=== PATIENT | female | born 1970 | race Caucasian/White ===

== ENCOUNTER → 2017-02-19 | Outpatient (CLI) | payer OTHER ==
[~2017-02-19] MED LIST: CALC-183 PO; CHOL200040 PO; CYCL-259 PO; ESCI10TA PO; ESCI10TA10 PO; ESTR1PAT65 TD; FERR325T20 PO; OXYC-302 PO; TRAZ50TA18 PO; XANAX PO
== END | disposition home or self-care (01) ==
LOC: CFH 09:47
PROVIDERS: ATTEND Obstetrics & Gynecology
DX: Z12.31 Encounter for screening mammogram for malignant neoplasm of breast (principal)
CPT/HCPCS: G0202

== ENCOUNTER 2017-06-26 17:08 | Emergency (ER) | payer OTHER ==
[~2017-06-26] VITALS: Ht 170.2 cm; Wt 111.1 kg
[2017-06-26 17:12] VITALS: BP 190/84
[2017-06-26] MEDS ORDERED: SODIUM CHLORIDE FLUSH 10ML SYR IVF ONE (17:30)
[2017-06-26] MEDS ORDERED: SODIUM CHLORIDE 0.9% 1,000ML IV ONE (17:30)
[2017-06-26] MEDS ORDERED: ONDANSETRON 2MG/ML, 2ML IVPush ONE (17:30)
[2017-06-26] MEDS ORDERED: HYDROmorphone 1 MG/ML, 1ML IVPush PRN (17:30)
[2017-06-26] MEDS ORDERED: ONDANSETRON 2MG/ML, 2ML ONE (17:54)
[2017-06-26] MEDS ORDERED: HYDROmorphone 1 MG/ML, 1ML ONE (17:54)
[2017-06-26 18:03] LABS: HEMATOCRIT 40.3 % (34.6-47.8); HEMOGLOBIN 13.3 g/dL (11.7-16.4); WHITE BLOOD COUNT 7.5 x10^3/uL (3.4-10)
[2017-06-26 18:15] LABS: BLOOD UREA NITROGEN 12 mg/dL (7-18)
[2017-06-26] MEDS ORDERED: KETOROLAC 30 MG/1 ML ONE (18:34)
[2017-06-26] MEDS ORDERED: ONDANSETRON ODT 4 MG ONE (18:34)
[2017-06-26] MEDS ORDERED: KETOROLAC 30 MG/1 ML IM ONE (19:00)
[2017-06-26] MEDS ORDERED: ONDANSETRON ODT 4 MG PO ONE (19:00)
== END 2017-06-26 20:22 | disposition home or self-care (01) ==
LOC: ED 19:45
DX: N20.2 Calculus of kidney with calculus of ureter (principal); Z90.49 Acquired absence of other specified parts of digestive tract; Z90.710 Acquired absence of both cervix and uterus; Z98.84 Bariatric surgery status
CPT/HCPCS: 36415; 74176; 80048; 81003; 82040; 84703; 85025; 96372; 99285; J1885; Q0162

== ENCOUNTER 2017-09-16 22:20 | Emergency (ER) | payer OTHER ==
[~2017-09-16] VITALS: Ht 170.2 cm; Wt 113.0 kg
[~2017-09-16 22:20] MED LIST changes: +FERR325T18 PO; -FERR325T20 PO
[2017-09-16] MEDS ORDERED: MORPHINE SULFATE 4 MG/ML, 1ML IVPush PRN (23:00)
[2017-09-16] MEDS ORDERED: ONDANSETRON 2MG/ML, 2ML IVPush ONE (23:00)
[2017-09-16] MEDS ORDERED: KETOROLAC 30 MG/1 ML IVPush ONE (23:00)
[2017-09-16] MEDS ORDERED: SODIUM CHLORIDE FLUSH 10ML SYR IVF ONE (23:00)
[2017-09-16] MEDS ORDERED: SODIUM CHLORIDE 0.9% 1,000ML IV ONE (23:00)
[2017-09-16] MEDS ORDERED: KETOROLAC 30 MG/1 ML ONE (23:07)
[2017-09-16] MEDS ORDERED: ONDANSETRON 2MG/ML, 2ML ONE (23:08)
[2017-09-16 23:22] LABS: HEMATOCRIT 39.9 % (34.6-47.8); HEMOGLOBIN 13.2 g/dL (11.7-16.4); WHITE BLOOD COUNT 8.3 x10^3/uL (3.4-10)
[2017-09-16 23:26] LABS: PATH.CAST-FLAG NOT PRESENT; SPERM-FLAG NOT PRESENT; SRC-FLAG NOT PRESENT; XTAL-FLAG NOT PRESENT; YLC-FLAG NOT PRESENT
[2017-09-16 23:27] LABS: BLOOD UREA NITROGEN 14 mg/dL (7-18)
[2017-09-17 00:32] VITALS: BP 140/75
== END 2017-09-17 00:35 | disposition home or self-care (01) ==
LOC: ED 22:41
DX: N13.2 Hydronephrosis with renal and ureteral calculous obstruction (principal); R31.9 Hematuria, unspecified
CPT/HCPCS: 36415; 76770; 80048; 81001; 82040; 85025; 87086; 96361; 96374; 96375; 99285; J1885; J2405; J7030

== ENCOUNTER → 2017-10-12 | Outpatient (CLI) | payer OTHER | END | disposition home or self-care (01) | LOC: RAD 14:45 | PROVIDERS: ATTEND Student in an Organized Health Care Education/Training Program | DX: N20.1 Calculus of ureter (principal); R10.2 Pelvic and perineal pain; N30.20 Other chronic cystitis without hematuria; Z87.442 Personal history of urinary calculi | CPT/HCPCS: 74176 ==

== ENCOUNTER → 2020-08-09 | Outpatient (CLI) | payer OTHER ==
[~2020-08-09] MED LIST changes: -TRAZ50TA18 PO; +TRAZ50TA66 PO
== END | disposition home or self-care (01) ==
LOC: CFH 12:20
PROVIDERS: ATTEND Obstetrics & Gynecology
DX: Z12.31 Encounter for screening mammogram for malignant neoplasm of breast (principal)
CPT/HCPCS: 77063; 77067